=== PATIENT | female | born 1980 | race Caucasian/White ===

== ENCOUNTER → 2021-08-17 | Outpatient (CLI) | payer OTHER ==
--- NOTE | 2021-08-17 13:10 | RAD ---
EXAM: Right knee, 3 views. HISTORY: Pain. Fall. COMPARISON: 04/22/2020 FINDINGS: 3 views of the right knee are obtained. There is no fracture, dislocation or subluxation. T here is no joint effusion. IMPRESSION: No acute osseous finding. Electronically signed by: Iraida Paulino MD (08/17/2021 1:07 PM) [id number]
--- NOTE | 2021-08-17 14:28 | RAD ---
XR ELBOW COMPLETE_RIGHT 3+ VIEWS DATE: 08/17/2021 12:15 PM INDICATION: FALL, PAIN COMPARISON: None. FINDINGS: Bones: There is no evidence of acute fracture or dislocation. Joints: The joint spaces are normal. There is no joint effusion. Miscellaneous: None. IMPRESSION: No evidence of acute fracture. Electronically signed by: Adrian Landry MD (08/17/2021 2:26 PM) [id number]
== END ==
LOC: PMG 12:12
PROVIDERS: ATTEND Family Medicine
DX: M25.561 Pain in right knee (principal); M25.521 Pain in right elbow
CPT/HCPCS: 73080; 73562